=== PATIENT | female | born 1955 | race Caucasian/White ===

== ENCOUNTER 2024-07-06 03:01 | Emergency (ER) | payer OTHER ==
[2024-07-06 03:07] VITALS: TEMP 97.6
[2024-07-06] MEDS: diphenhydrAMINE 50 MG/ML 1 ML VIAL IVP STA (03:52)
[2024-07-06] MEDS: METOCLOPRAMIDE 5 MG/ML 2 ML VIAL IVP STA (03:53)
[2024-07-06] MEDS: MORPHINE SULFATE 4 MG/ML SYRINGE IVP STA (03:53)
[2024-07-06] MEDS: SODIUM CHLORIDE 0.9% 1,000 ML IV STA (03:56)
[2024-07-06 04:05] LABS: Basophils # (A) 0.03 10*3/uL (0.00-0.10); Basophils % (A) 0.2 %; HCT 45.4 % (37.2-46.3); Lymphocytes # (A) 1.71 10*3/uL (0.90-5.00); Lymphocytes % (A) 11.3 %; MCH 31.6 pg (27.0-32.0); MCHC 35.2 g/dL (32.0-37.0); MCV 89.5 fL (80.0-97.0); Mean Platelet Volume 10.9 fL (9.5-12.2); Monocytes # (A) 1.06 10*3/uL (0.20-1.00); Neutrophils # (A) 12.34 10*3/uL (1.80-7.70); Neutrophils % (A) 81.1 %; Platelet Count 378 10*3/uL (140-440); RBC 5.07 10*6/uL (4.10-5.20); RDW 13.5 % (11.5-14.5)
[2024-07-06 04:37] LABS: AST 36 U/L (14-36); African American GFR (CKD) 70 (>60 ml/min/1.73 sqM); Albumin 5.3 g/dL (3.5-5.0); Alkaline Phosphatase 95 U/L (38-126); Anion Gap 19 mmol/L; Blood Urea Nitrogen 16 mg/dL (7-17); Carbon Dioxide 25 mmol/L (22-30); Chloride 95 mmol/L (98-107); Glucose 169 mg/dL (74-99); Lipase 149 U/L (23-300); Non-African American GFR(CKD) 61 (>60 ml/min/1.73 sqM); Potassium 3.6 mmol/L (3.5-5.1); Sodium 139 mmol/L (137-145); Total Bilirubin 1.1 mg/dL (0.2-1.3); Total Protein 8.7 g/dL (6.3-8.2)
[2024-07-06 04:44] LABS: ALT 30 U/L (4-34)
--- NOTE | 2024-07-06 05:15 | XR ---
EXAM: XR Right Hip With Pelvis When Performed, 1 View CLINICAL HISTORY: ITS.REASON XR Reason: pain TECHNIQUE: Frontal view of the right hip with pelvis when performed. COMPARISON: No relevant prior studies available. FINDINGS: Bones/joints: Degenerative changes are seen within the spine and hips. No acute fracture. No dislocation. Soft tissues: Unremarkable. IMPRESSION: No acute findings in the right hip.
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
[2024-07-06 06:34] VITALS: BP 126/86; PULSE 76; RESP 20
== END 2024-07-06 06:54 | disposition home or self-care (01) ==
LOC: EC 03:01
DX: G89.29 Other chronic pain (principal); M25.551 Pain in right hip; R11.2 Nausea with vomiting, unspecified; Z87.891 Personal history of nicotine dependence
CPT/HCPCS: 36415; 80053; 83690; 85025; 73502; 99285; 96374; 96375 ×2; 96361 ×3; J2270; J1200; J2765

== ENCOUNTER 2024-07-08 11:56 | Emergency (ER) | payer MEDICARE, OTHER ==
--- NOTE | 2024-07-08 12:38 | ED ---
Extremity Problem HPI - General Chief complaint: Extremity Problem,Nontraumatic Stated complaint: R hip pain Time Seen by Provider: 07/08/24 12:11 Source: patient Mode of arrival: wheelchair Limitations: no limitations - History of Present Illness Initial comments: This patient is a 69-year-old woman who presents to have evaluation of right hip pain. She indicates pain from the lateral aspect around the posterior aspect of the hip. She states that it started on Wednesday. It is aching, now severe. She denies having any trauma at onset. She noticed it when she was trying to get out of bed. She states that moving and trying to bear weight on her leg make the pain get worse. She has not really noted any factors other than lying still. She was seen at [facility] on Wednesday and then also seen in the emergency department here on morning. She states that she did receive morphine that gave a little bit of relief but she went home with Matthews that only brought on nausea. The patient has not noted fever or chills. She is not having systemic symptoms, no chest pain, dyspnea, cough, palpitations, change in urination or bowel movements. No weakness or numbness of the extremity. MD Complaint: joint pain Onset/Timin -: days(s) Location: right History of Same: No Quality: aching Consistency: constant Improves with: rest Worsens with: weight bearing, walking, palpation Associated Symptoms: denies other symptoms - Related Data Previous Rx's Medication Instructions Recorded HYDROcodone/APAP 5-325MG [Matthews 1 tab PO Q6HR PRN 3 Days #12 tab 07/06/24 5-325] Ibuprofen 400 mg PO Q8H #18 tablet 07/08/24 Potassium Chloride ER [K-Dur 20] 20 meq PO BID #6 tab 07/08/24 predniSONE [Deltasone] 20 mg PO BID #8 tab 07/08/24 Ibuprofen 400 mg PO Q8H PRN #20 tablet 07/09/24 Potassium Chloride ER [K-Dur 20] 20 meq PO BID #6 tab 07/09/24 predniSONE [Deltasone] 20 mg PO BID #8 tab 07/09/24 Allergies Allergy/AdvReac Type Severity Reaction Status Date / Time No Known Allergies Allergy Verified 07/08/24 12:05 Review of Systems ROS Statement: Those systems with pertinent positive or pertinent negative responses have been documented in the HPI. ROS Other: All systems not noted in ROS Statement are negative. Constitutional: Denies: fever, chills, weakness Respiratory: Denies: cough, dyspnea Cardiovascular: Denies: chest pain, palpitations, edema Gastrointestinal: Denies: abdominal pain, vomiting, diarrhea, constipation Genitourinary: Denies: dysuria, frequency, hematuria Musculoskeletal: Reports: as per HPI, arthralgia. Denies: back pain Skin: Denies: rash Neurological: Denies: headache, weakness, numbness, paresthesias Past Medical History Past Medical History: Hypertension, Thyroid Disorder History of Any Multi-Drug Resistant Organisms: None Reported Past Surgical History: Hysterectomy Additional Past Surgical History / Comment(s): 2 neck fusions Smoking Status: Former smoker Past Alcohol Use History: None Reported Past Drug Use History: Marijuana General Exam Limitations: no limitations General appearance: alert, in no apparent distress Head exam: Present: atraumatic, normocephalic Eye exam: Present: normal appearance. Absent: scleral icterus, conjunctival injection Neck exam: Present: normal inspection Respiratory exam: Present: normal lung sounds bilaterally. Absent: respiratory distress, wheezes, rales, rhonchi, stridor, accessory muscle use Cardiovascular Exam: Present: regular rate, normal rhythm, normal heart sounds. Absent: systolic murmur, diastolic murmur, rubs, gallop GI/Abdominal exam: Present: soft. Absent: distended, tenderness, guarding, rebound, mass Extremities exam: Present: normal inspection, tenderness, normal capillary refill. Absent: full ROM, pedal edema, calf tenderness Back exam: Present: normal inspection. Absent: muscle spasm, paraspinal tenderness, vertebral tenderness Neurological exam: Present: alert, reflexes normal. Absent: motor sensory deficit Skin exam: Present: warm, dry, intact, normal color. Absent: rash Course Vital Signs 07/08/24 07/08/24 11:57 15:45 Temperature 98.4 F 98.1 F Pulse Rate 72 60 Respiratory 17 20 Rate Blood Pressure 150/92 155/85 O2 Sat by Pulse 97 99 Oximetry Medical Decision Making - Medical Decision Making On reevaluation, the patient is feeling better. Range of motion has improved. we discussed appropriate further care and follow-up including seeing orthopedic surgeon should her hip pain not improve, possibly also physical therapy. The patient stated that she is currently receiving physical therapy for that hip. She also has mild hypokalemia and will be given course of few days of Cater and have the potassium rechecked. Discussed return parameters. The patient had CT scan of the abdomen that I interpreted as negative for acute fracture, dislocation, foreign body. Was pt. sent in by a medical professional or institution (, PA, MANAGER SKILLED, urgent care, hospital, or senior living...) When possible be specific @ -No Did you speak to anyone other than the patient for history (EMS, parent, family, police, friend...)? What history was obtained from this source @ -No Did you review nursing and triage notes (agree or disagree)? Why? @ -I reviewed and agree with nursing and triage notes Were old charts reviewed (outside hosp., previous admission, EMS record, old EKG, old radiological studies, urgent care reports/EKG's, senior living records)? Report findings @ -No old charts were reviewed Differential Diagnosis (chest pain, altered mental status, abdominal pain women, abdominal pain men, vaginal bleeding, weakness, fever, dyspnea, syncope, heada sherly, dizziness, GI bleed, back pain, seizure, CVA, palpatations, mental health, musculoskeletal)? @ -[Differential Musculoskeletal Muscular strain, contusion, ligament sprain, fracture, arthritis, septic arthritis, bursitis, cellulitis, muscle spasm, nerve compression, DVT, arterial occlusion, herpes zoster, electrolyte abnormality, tumor.... This is not meant to be in all inclusive list EKG interpreted by me (3pts min.). @ -As above X-rays interpreted by me (1pt min.). @ -None done CT interpreted by me (1pt min.). @ - I interpreted as above U/S interpreted by me (1pt. min.). @ -None done What testing was considered but not performed or refused? (CT, X-rays, U/S, labs)? Why? @ -None What meds were considered but not given or refused? Why? @ -None Did you discuss the management of the patient with other professionals (professionals i.e. , BHARTI, MANAGER SKILLED, lab, RT, psych nurse, social media senior associate, modeling analyst, teacher, public affairs officer, senior case manager)? Give summary @ -No Was smoking cessation discussed for >3mins.? @ -No Was critical care preformed (if so, how long)? @ -No Were there social determinants of health that impacted care today? How? (Homelessness, low income, unemployed, alcoholism, drug addiction, transportation, low edu. Level, literacy, decrease access to med. care, retirement, rehab)? @ -No Was there de-escalation of care discussed even if they declined (Discuss DNR or withdrawal of care, Hospice)? DNR status @ -No What co-morbidities impacted this encounter? (DM, HTN, Smoking, COPD, CAD, Cancer, CVA, ARF, Chemo, Hep., AIDS, mental health diagnosis, sleep apnea, morbid obesity)? @ -None Was patient admitted / discharged? Hospital course, mention meds given and route, prescriptions, significant lab abnormalities, going to OR and other pertinent info. @ -[See above Undiagnosed new problem with uncertain prognosis? @ -No Drug Therapy requiring intensive monitoring for toxicity (Heparin, Nitro, Insulin, Cardizem)? @ -No Were any procedures done? @ -No Diagnosis/symptom? @ -[Acute hip pain Acute hypokalemia Acute, or Chronic, or Acute on Chronic? @ -Acute Uncomplicated (without systemic symptoms) or Complicated (systemic symptoms)? @ -[Uncomplicated Side effects of treatment? @ -[No Exacerbation, Progression, or Severe Exacerbation? @ -No Poses a threat to life or bodily function? How? (Chest pain, USA, [place], pneumonia, PE, COPD, DKA, ARF, appy, cholecystitis, CVA, Diverticulitis, Homicidal, Suicidal, threat to staff... and all critical care pts) @ -No All treatments are based on ideal body weight as in ED triage - Lab Data Result diagrams: 07/08/24 13:24 07/08/24 13:24 Lab Results 07/08/24 07/08/24 Range/Units 13:24 13:24 WBC 9.14 (4.50-10.00) 10*3/uL RBC 4.48 (4.10-5.20) 10*6/uL Hgb 13.9 (12.0-15.0) g/dL Hct 39.9 (37.2-46.3) % MCV 89.1 (80.0-97.0) fL MCH 31.0 (27.0-32.0) pg MCHC 34.8 (32.0-37.0) g/dL Plt Count 302 (140-440) 10*3/uL MPV 10.3 (9.5-12.2) fL Immature Gran % (Auto) 0.3 % Neutrophils % 68.6 % Lymphocytes % 22.3 % Monocytes % 7.9 % Eosinophils % 0.4 % Basophils % 0.5 % Immature Gran # 0.03 (0.00-0.04) 10*3/uL Neutrophils # 6.26 (1.80-7.70) 10*3/uL Lymphocytes # 2.04 (0.90-5.00) 10*3/uL Monocytes # 0.72 (0.20-1.00) 10*3/uL Eosinophils # 0.04 (0.04-0.35) 10*3/uL Basophils # 0.05 (0.00-0.10) 10*3/uL Sodium 138 (137-145) mmol/L Potassium 2.8 L (3.5-5.1) mmol/L Chloride 101 (98-107) mmol/L Carbon Dioxide 25 (22-30) mmol/L Anion Gap 12 mmol/L BUN 22 H (7-17) mg/dL Creatinine 0.90 (0.52-1.04) mg/dL Est GFR (CKD-EPI)AfAm 76 (>60 ml/min/1.73 sqM) Est GFR (CKD-EPI)NonAf 66 (>60 ml/min/1.73 sqM) Glucose 102 H (74-99) mg/dL Calcium 10.0 (8.4-10.2) mg/dL Total Bilirubin 0.9 (0.2-1.3) mg/dL AST 27 (14-36) U/L ALT 19 (4-34) U/L Alkaline Phosphatase 67 (38-126) U/L C-Reactive Protein <0.5 (<1.0) mg/dL Total Protein 7.4 (6.3-8.2) g/dL Albumin 4.6 (3.5-5.0) g/dL Disposition Clinical Impression: Hip pain, right, Hypokalemia Disposition: HOME SELF-CARE Condition: Good Instructions (If sedation given, give patient instructions): Hip Pain (ED) Prescriptions: predniSONE [Deltasone] 20 mg PO BID #8 tab predniSONE [Deltasone] 20 mg PO BID #8 tab Ibuprofen 400 mg PO Q8H PRN #20 tablet PRN Reason: Pain Ibuprofen 400 mg PO Q8H #18 tablet Potassium Chloride ER [K-Dur 20] 20 meq PO BID #6 tab Potassium Chloride ER [K-Dur 20] 20 meq PO BID #6 tab Is patient prescribed a controlled substance at d/c from ED?: No Referrals: None,Stated [REFERRING] - 1-2 days Edgard Amaya MD [Primary Care Provider] - 1-2 days Bryan Olivarez DO [Doctor of Osteopathic Medicine] - 1-2 days
[2024-07-08] MEDS: KETOROLAC 15 MG/ML 1 ML VIAL IVP STA (12:56)
[2024-07-08] MEDS: MORPHINE SULFATE 4 MG/ML SYRINGE IV STA (12:57)
[2024-07-08] MEDS: ONDANSETRON 4 MG/2 ML VIAL IVP STA (13:12)
[2024-07-08] MEDS: FAMOTIDINE 20 MG/2 ML VIAL IV STA (13:13)
[2024-07-08 13:33] LABS: Basophils # (A) 0.05 10*3/uL (0.00-0.10); Basophils % (A) 0.5 %; Eosinophils # (A) 0.04 10*3/uL (0.04-0.35); Eosinophils % (A) 0.4 %; HCT 39.9 % (37.2-46.3); HGB 13.9 g/dL (12.0-15.0); Lymphocytes # (A) 2.04 10*3/uL (0.90-5.00); Lymphocytes % (A) 22.3 %; MCHC 34.8 g/dL (32.0-37.0); MCV 89.1 fL (80.0-97.0); Mean Platelet Volume 10.3 fL (9.5-12.2); Monocytes # (A) 0.72 10*3/uL (0.20-1.00); Monocytes % (A) 7.9 %; Neutrophils # (A) 6.26 10*3/uL (1.80-7.70); Neutrophils % (A) 68.6 %; Platelet Count 302 10*3/uL (140-440); RBC 4.48 10*6/uL (4.10-5.20); WBC 9.14 10*3/uL (4.50-10.00)
--- NOTE | 2024-07-08 13:35 | CT ---
EXAMINATION TYPE: CT hip RT wo con DATE OF EXAM: 07/08/2024 COMPARISON: None CLINICAL INDICATION: Female, 69 years old with history of hip pain; PHH, RIGHT HIP PAIN CT DLP: 304.5 mGycm Automated exposure control for dose reduction was used. FINDINGS: There is no fracture or dislocation. There is a small subchondral cysts in the posterior humeral head and there is mild hypertrophic spurring of the posterior acetabulum. There is mild joint space narro wing posteriorly. IMPRESSION: Mild osteoarthritis of the right hip. IMPRESSION: [facility], Workstation: [facility], 07/08/2024 1:33 PM
[2024-07-08 13:50] LABS: ALT 19 U/L (4-34); AST 27 U/L (14-36); African American GFR (CKD) 76 (>60 ml/min/1.73 sqM); Albumin 4.6 g/dL (3.5-5.0); Alkaline Phosphatase 67 U/L (38-126); Anion Gap 12 mmol/L; Blood Urea Nitrogen 22 mg/dL (7-17); C Reactive Protein <0.5 mg/dL (<1.0); Carbon Dioxide 25 mmol/L (22-30); Chloride 101 mmol/L (98-107); Glucose 102 mg/dL (74-99); Non-African American GFR(CKD) 66 (>60 ml/min/1.73 sqM); Potassium 2.8 mmol/L (3.5-5.1); Sodium 138 mmol/L (137-145); Total Bilirubin 0.9 mg/dL (0.2-1.3); Total Protein 7.4 g/dL (6.3-8.2)
[2024-07-08] MEDS: POTASSIUM CHLORIDE ER 20 MEQ TAB.ER PO STA (14:45)
[2024-07-08] MEDS: SODIUM CHLORIDE 0.9% 500 ML 500 ML IV STA (14:46)
[2024-07-08] MEDS: predniSONE 20 MG TAB PO STA (15:20)
[2024-07-08 15:48] VITALS: BP 155/85; PULSE 60; RESP 20; TEMP 98.1
== END 2024-07-08 15:48 | disposition home or self-care (01) ==
LOC: EC 11:56
DX: M25.551 Pain in right hip (principal); E87.6 Hypokalemia; Z87.891 Personal history of nicotine dependence
CPT/HCPCS: 36415; 80053; 85025; 86140; 73700; 99284; 96374; 96375; 96361; J2270; J2405; J1885; J7512; J1308

== ENCOUNTER 2024-10-02 08:42 | Emergency (ER) | payer MEDICARE ==
[2024-10-02 08:49] VITALS: BP 151/93; PULSE 88; RESP 20; TEMP 97.5
--- NOTE | 2024-10-02 08:53 | ED ---
Headache HPI - General Mode of arrival: ambulatory Limitations: no limitations <Nargis Garcia - Last Filed: 10/02/24 12:53> <Ryan Fitch - Last Filed: 10/02/24 15:00> - General Chief Complaint: Headache Stated Complaint: Headache - History of Present Illness Initial Comments: 69-year-old female here for headache. She reported that she has been experienc ing headaches for 2 weeks that have been daily, 10 out of 10 intensity, bitemporal spreading to both of her eyes, throbbing with photophobia and nausea, tearing up of the eyes and rhinorrhea. Last Wednesday she was seen at Dr. Amaya's office and was given a shot for the headache but she could not recall what it was. She was advised that if she did not improve by Wednesday that she should seek care in the ED. She has a history of sciatica and has been given steroid shots. She denied chest pain, focal weakness, recent trauma or fall, palpitations, loss of consciousness, shortness of breath, recent flulike symptoms. (Nargis Garcia) - Related Data Home Medications Medication Instructions Recorded Confirmed Atorvastatin [Lipitor] 20 mg PO DAILY 10/02/24 10/02/24 Ketorolac [Toradol] 10 mg PO Q6HR PRN 10/02/24 10/02/24 Levothyroxine Sodium [Synthroid] 125 mcg PO DAILY 10/02/24 10/02/24 Melatonin 5 mg PO HS 10/02/24 10/02/24 Pantoprazole [Protonix] 40 mg PO DAILY 10/02/24 10/02/24 amLODIPine [Norvasc] 10 mg PO DAILY 10/02/24 10/02/24 traZODone HCL [Desyrel] 100 mg PO HS 10/02/24 10/02/24 Previous Rx's Medication Instructions Recorded traMADol HCL 50 mg PO Q6H 7 Days #28 tab 10/02/24 Allergies Allergy/AdvReac Type Severity Reaction Status Date / Time No Known Allergies Allergy Verified 10/02/24 11:42 Review of Systems ROS Other: All systems not noted in ROS Statement are negative. <Nargis Garcia - Last Filed: 10/02/24 12:53> ROS Other: All systems not noted in ROS Statement are negative. <Ryan Fitch - Last Filed: 10/02/24 15:00> ROS Statement: Those systems with pertinent positive or pertinent negative responses have been documented in the HPI. Past Medical History Past Medical History: Hypertension, Thyroid Disorder History of Any Multi-Drug Resistant Organisms: None Reported Past Surgical History: Hysterectomy Additional Past Surgical History / Comment(s): 2 neck fusions Past Psychological History: No Psychological Hx Reported Smoking Status: Former smoker Past Alcohol Use History: None Reported Past Drug Use History: Marijuana <Nargis Garcia - Last Filed: 10/02/24 12:53> General Exam Limitations: no limitations <Nargis Garcia - Last Filed: 10/02/24 12:53> - General Exam Comments Initial Comments: Physical examination: Vital signs reviewed General: non toxic, no distress, appears at stated age Head: atraumatic, normocephalic, symmetric Mouth: no lip lesion, mucus membranes moist Cardiovascular: S1S2 reg, no murmur Lungs: CTA bilateral, no rhonchi, no rales, no accessory muscle use Abdominal: soft, nondistended, nontender to palpation, no guarding Ext: muscle strength 5 out of 5 in all 4 extremities grossly, no gross muscle atrophy, no contractures, positive dorsalis pedis pulse bilateral, no edema Neuro: no gross focal neuro deficits Psych: Alert and oriented x3, appropriate affect and mood (Nargis Garcia) Course <Nargis Garcia - Last Filed: 10/02/24 12:53> Vital Signs 10/02/24 08:47 Temperature 97.5 F L Pulse Rate 88 Respiratory 20 Rate Blood Pressure 151/93 O2 Sat by Pulse 99 Oximetry - Reevaluation(s) Reevaluation #1: 10/02/24 11:50 Patient's pain has somewhat improved. However, she still complains of photophobia. (Nargis Garcia) Medical Decision Making - Lab Data Result diagrams: 10/02/24 10:05 10/02/24 10:05 <Nargis Garcia - Last Filed: 10/02/24 12:53> - Lab Data Result diagrams: 10/02/24 10:05 10/02/24 10:05 <Ryan Fitch - Last Filed: 10/02/24 15:00> - Medical Decision Making Was pt. sent in by a medical professional or institution (BHARTI Mosher, [employer], urgent care, hospital, or detention...) When possible be specific @ -No Did you speak to anyone other than the patient for history (EMS, parent, family, police, friend...)? What history was obtained from this source @ -No Did you review nursing and triage notes (agree or disagree)? Why? @ -I reviewed and agree with nursing and triage notes Were old charts reviewed (outside hosp., previous admission, EMS record, old EKG, old radiological studies, urgent care reports/EKG's, detention records)? Report findings @ -No old charts were reviewed Differential Diagnosis? @ -Differential Headache: Migraine, tension, cluster, carbon monoxide, central venous thrombosis, pension karma temporal arteritis, acute closure glaucoma, intercranial hemorrhage, mastoiditis, sinusitis, head injury, this is not meant to be an all-inclusive list. EKG interpreted by me (3pts min.). @ -As above X-rays interpreted by me (1pt min.). @ -None done CT interpreted by me (1pt min.). @ -None done U/S interpreted by me (1pt. min.). @ -None done What testing was considered but not performed or refused? (CT, X-rays, U/S, labs)? Why? @ -None What meds were considered but not given or refused? Why? @ -None Did you discuss the management of the patient with other professionals (professionals i.e. BHARTI Mosher, [employer] DES[employer]ER, lab, RT, psych nurse, social and human services assistant, boot and shoe laborer, teacher, chief science officer, embedded case manager)? Give summary @ -No Was smoking cessation discussed for >3mins.? @ -No Was critical care preformed (if so, how long)? @ -No Were there social determinants of health that impacted care today? How? (Homelessness, low income, unemployed, alcoholism, drug addiction, transportation, low edu. Level, literacy, decrease access to med. care, shelter, rehab)? @ -No Was there de-escalation of care discussed even if they declined (Discuss DNR or withdrawal of care, Hospice)? DNR status @ -No What co-morbidities impacted this encounter? (DM, HTN, Smoking, COPD, CAD, Cancer, CVA, ARF, Chemo, Hep., AIDS, mental health diagnosis, sleep apnea, morbid obesity)? @ -None Was patient admitted / discharged? Hospital course, mention meds given and route, prescriptions, significant lab abnormalities, going to OR and other pertinent info. @ -Discharge. Patient symptoms improved with pain control with IV Dilaudid and tramadol once. CT brain without contrast shows no acute processes, chronic sinus disease. No new complications or symptoms occurred. She is cleared for discharge with tramadol p.o. for 7 days and is advised to follow-up with PCP Undiagnosed new problem with uncertain prognosis? @ -No Drug Therapy requiring intensive monitoring for toxicity (Heparin, Nitro, Insulin, Cardizem)? @ -No Were any procedures done? @ -No Diagnosis/symptom? @ -Default Acute, or Chronic, or Acute on Chronic? @ -Default Uncomplicated (without systemic symptoms) or Complicated (systemic symptoms)? @ -Default Side effects of treatment? @ -No Exacerbation, Progression, or Severe Exacerbation? @ -No Poses a threat to life or bodily function? How? (Chest pain, [place], [place], pneumonia, PE, COPD, DKA, ARF, appy, cholecystitis, CVA, Diverticulitis, Homicidal, Suicidal, threat to staff... and all critical care pts) @ -No (Nargis Garcia) I personally saw the patient and performed the critical portion of the service. I discussed the patient care with the rresident. I directed management, care planning and final disposition of the patient. This includes, but not limited to, review of all lab work, radiological studies, EKG's, consultations, vital signs, and nursing notes. EKG interpreted by me (3pts min.) @As above X-Rays interpreted by me (1 pt min.) @None CT interpreted by me ( 1pt min.) @ [CT brain is negative for intracranial hemorrhage or mass effect, no acute findings U/S interpreted by me (1 pt min.) @None Critical care time of 0 minutes excluding separately billable procedures was spent in conjunction with critical care activities provided by the Resident and Attending simultaneously. I was present during no procedures for all critical portions of the procedure and as immediately available to furnish service during the entire procedure. (Ryan Fitch) - Lab Data Lab Results 10/02/24 10/02/24 Range/Units 10:05 10:05 WBC 8.09 (4.50-10.00) 10*3/uL RBC 3.96 L (4.10-5.20) 10*6/uL Hgb 12.7 (12.0-15.0) g/dL Hct 36.9 L (37.2-46.3) % MCV 93.2 (80.0-97.0) fL MCH 32.1 H (27.0-32.0) pg MCHC 34.4 (32.0-37.0) g/dL Plt Count 241 (140-440) 10*3/uL MPV 10.4 (9.5-12.2) fL Immature Gran % (Auto) 0.2 % Neutrophils % 65.4 % Lymphocytes % 24.8 % Monocytes % 7.0 % Eosinophils % 2.0 % Basophils % 0.6 % Immature Gran # 0.02 (0.00-0.04) 10*3/uL Neutrophils # 5.28 (1.80-7.70) 10*3/uL Lymphocytes # 2.01 (0.90-5.00) 10*3/uL Monocytes # 0.57 (0.20-1.00) 10*3/uL Eosinophils # 0.16 (0.04-0.35) 10*3/uL Basophils # 0.05 (0.00-0.10) 10*3/uL Sodium 138 (137-145) mmol/L Potassium 4.2 (3.5-5.1) mmol/L Chloride 106 (98-107) mmol/L Carbon Dioxide 23 (22-30) mmol/L Anion Gap 9 mmol/L BUN 11 (7-17) mg/dL Creatinine 0.88 (0.52-1.04) mg/dL Est GFR (CKD-EPI)AfAm 78 (>60 ml/min/1.73 sqM) Est GFR (CKD-EPI)NonAf 68 (>60 ml/min/1.73 sqM) Glucose 89 (74-99) mg/dL Calcium 9.9 (8.4-10.2) mg/dL Total Bilirubin 0.5 (0.2-1.3) mg/dL AST 22 (14-36) U/L ALT 16 (4-34) U/L Alkaline Phosphatase 55 (38-126) U/L Total Protein 6.8 (6.3-8.2) g/dL Albumin 4.4 (3.5-5.0) g/dL 10/02/24 10:13 Sinus rhythm with a rate of 66 bpm, [place] interval 153 MS, QRS duration normal at 86 MS, QTc 410 MS, no ST-T changes, good R wave progression (Nargis Garcia) Disposition Is patient prescribed a controlled substance at d/c from ED?: Yes When asked, does pt state using other controlled substances?: No If prescribed controlled substance>3 days was MAPS reviewed?: Yes If opioid is for acute pain is fill amount 7 days or less?: Yes If Rx opioid, was Start Talking consent form obtained?: Yes Decision Time: 13:01 <Nargis Garcia - Last Filed: 10/02/24 12:53> <Ryan Fitch - Last Filed: 10/02/24 15:00> Clinical Impression: Headache Disposition: HOME SELF-CARE Prescriptions: traMADol HCL 50 mg PO Q6H 7 Days #28 tab Referrals: Edgard Amaya MD [Primary Care Provider] - 1-2 days
[2024-10-02] MEDS: METOCLOPRAMIDE 5 MG/ML 2 ML VIAL IVP STA (10:08)
[2024-10-02] MEDS: HYDROmorphone 0.5 MG/0.5 ML SYRINGE IVP STA (10:09)
[2024-10-02 10:23] LABS: Basophils # (A) 0.05 10*3/uL (0.00-0.10); Basophils % (A) 0.6 %; Eosinophils # (A) 0.16 10*3/uL (0.04-0.35); Eosinophils % (A) 2.0 %; HCT 36.9 % (37.2-46.3); HGB 12.7 g/dL (12.0-15.0); Lymphocytes # (A) 2.01 10*3/uL (0.90-5.00); Lymphocytes % (A) 24.8 %; MCH 32.1 pg (27.0-32.0); MCHC 34.4 g/dL (32.0-37.0); MCV 93.2 fL (80.0-97.0); Monocytes # (A) 0.57 10*3/uL (0.20-1.00); Monocytes % (A) 7.0 %; Neutrophils # (A) 5.28 10*3/uL (1.80-7.70); Neutrophils % (A) 65.4 %; Platelet Count 241 10*3/uL (140-440); RBC 3.96 10*6/uL (4.10-5.20); RDW 13.2 % (11.5-14.5); WBC 8.09 10*3/uL (4.50-10.00)
[2024-10-02 10:39] LABS: ALT 16 U/L (4-34); AST 22 U/L (14-36); African American GFR (CKD) 78 (>60 ml/min/1.73 sqM); Albumin 4.4 g/dL (3.5-5.0); Alkaline Phosphatase 55 U/L (38-126); Anion Gap 9 mmol/L; Blood Urea Nitrogen 11 mg/dL (7-17); Calcium 9.9 mg/dL (8.4-10.2); Carbon Dioxide 23 mmol/L (22-30); Chloride 106 mmol/L (98-107); Glucose 89 mg/dL (74-99); Non-African American GFR(CKD) 68 (>60 ml/min/1.73 sqM); Potassium 4.2 mmol/L (3.5-5.1); Sodium 138 mmol/L (137-145); Total Protein 6.8 g/dL (6.3-8.2)
--- NOTE | 2024-10-02 11:11 | CT ---
EXAMINATION TYPE: CT brain wo con DATE OF EXAM: 10/02/2024 10:59 AM COMPARISON: None. CLINICAL INDICATION: Female, 69 years old with history of refractory headache, HEADACHE FOR TWO WEEKS , TECHNIQUE: Examination was done in axial plane without intravenous contrast. Coronal and sagittal r econstructions performed. CT DLP: 1127.8 mGycm, Automated exposure control for dose reduction was used. FINDINGS: There is no evidence of acute intracranial hemorrhage, acute ischemic changes, mass, mass-effect, or extra-axial fluid collection. There is no effacement of cerebral sulci or basal subarachnoid cister ns. There is no hydrocephalus. There is no midline shift. Parker-white matter distinction is preserv ed. Mild patchy hypodensities in both cerebral hemispheres. Moderate mucosal thickening floor of the left maxillary sinus. Lobes are intact. Mastoid air cells we ll pneumatized. IMPRESSION: 1. Mild patchy burden of chronic small vessel ischemic disease. No acute intracranial abnormality see n. 2. Moderate chronic left maxillary sinus disease. [facility], , 10/02/2024 11:08 AM
[2024-10-02] MEDS: SODIUM CHLORIDE 0.9% 500 ML 500 ML IV STA (12:06)
[2024-10-02] MEDS: KETOROLAC 15 MG/ML 1 ML VIAL IVP STA (12:09)
== END 2024-10-02 13:27 | disposition home or self-care (01) ==
LOC: EC 08:42
DX: I67.82 Cerebral ischemia (principal); Z87.891 Personal history of nicotine dependence
CPT/HCPCS: 36415; 80053; 85025; 70450; 99284; 96374; 96375; 96361; J2765; J1885; J1171